=== PATIENT | female | born 1985 | race Caucasian/White ===

== ENCOUNTER 2016-12-22 09:32 | Day surgery (SDC) | payer BC ==
[~2016-12-22 09:32] MED LIST: RINGER'S SOLUTION,LACTATED 1,000 ML IV PRN; ceFAZolin SODIUM 1 GM VIAL IV PRN
[2016-12-22] MEDS ORDERED: RINGER'S SOLUTION,LACTATED 1,000 ML IV ONE ×2 (10:05→11:19)
[2016-12-22] MEDS ORDERED: BUPIVACAINE HCL/EPINEPHRINE 50 ML VIAL IJ ONE ×2 (11:00)
[2016-12-22 12:41] VITALS: BP 107/79
== END 2016-12-22 09:33 | disposition home or self-care (01) ==
LOC: AMB 09:32
PROVIDERS: ATTEND Orthopaedic Surgery
PROC: 0QBG0ZZ Excision of Right Tibia, Open Approach (ICD-10-PCS; principal; 2016-12-22 11:55)
DX: M92.51 Juvenile osteochondrosis of proximal tibia (principal); F17.210 Nicotine dependence, cigarettes, uncomplicated; Z68.29 Body mass index [BMI] 29.0-29.9, adult